=== PATIENT | female | born 1960 | race Caucasian/White ===

== ENCOUNTER 2019-07-03 14:00 | Inpatient (IN) | payer MEDICARE, BC ==
[~2019-07-03] VITALS: Ht 160 cm; Wt 74.3 kg
[2019-07-03 12:39] LABS: BASOPHILS % (AUTO) 0.2 % (0-1); EOSINOPHILS # (AUTO) 0.1 X10'3 (0-0.9); EOSINOPHILS % (AUTO) 1.2 % (0-6); LYMPHOCYTES # (AUTO) 2.9 X10'3 (1.1-4.8); LYMPHOCYTES % (AUTO) 44.4 % (21-51); MEAN CORPUSCULAR HGB CONC 33.6 g/dL (33.0-36.5); MONOCYTES # (AUTO) 0.5 X10'3 (0-0.9); MONOCYTES % (AUTO) 7.1 % (2-12); NEUTROPHILS # (AUTO) 3.1 X10'3 (1.8-7.7); NEUTROPHILS % (AUTO) 47.1 % (42-75); PRE OP HEMATOCRIT 39.1 % (35.0-45.0); PRE OP HEMOGLOBIN 13.2 g/dL (12.0-16.0); PRE OP PLATELET COUNT 252 X10'3 (140-440); RED BLOOD COUNT 4.25 X10'6 (4.20-5.60); RED CELL DISTRIBUTION WIDTH 12.8 % (11.5-14.5)
[2019-07-03 12:58] LABS: ALBUMIN 3.8 G/DL (3.4-5.0); ALBUMIN/GLOBULIN RATIO 1.2 (1.1-1.5); ALKALINE PHOSPHATASE 108 IU/L (46-116); BLOOD UREA NITROGEN 12 MG/DL (7-18); BUN/CREATININE RATIO 15.8 (6.6-38.0); CALCIUM 9.3 MG/DL (8.5-10.1); CHLORIDE 106 MMOL/L (99-107); CREATININE 0.76 MG/DL (0.40-0.90); PRE OP ALT 18 U/L (30-65); PRE OP ANION GAP 6 (8-16); PRE OP AST 20 U/L (10-37); PRE OP BILIRUB, TOTAL 0.2 MG/DL (0.0-1.0); PRE OP GLUCOSE 87 MG/DL (70-104); PRE OP POTASSIUM 4.1 MMOL/L (3.4-5.1); PRE OP SODIUM 141 MMOL/L (135-145); TOTAL CARBON DIOXIDE 28.9 MMOL/L (24-32); eGFR 78 ML/MIN
[~2019-07-03 14:00] MED LIST: AMIT10TA6 PO; CALC-1051 PO; ESOM40CA PO; FLUO20CA39 PO; MULT-933 PO; OXYC-658 PO; TIZA4CAP6 PO
[2019-07-11] VITALS (18 sets, daily range): BP systolic 83–142; BP diastolic 44–91
[2019-07-11] MEDS ORDERED: ringers solution, lacted 1,000 ML IV SCH ×2 (05:00→13:26)
[2019-07-11] MEDS ORDERED: famotidine 20mg tablet PO ONE (05:30)
[2019-07-11] MEDS ORDERED: vancomycin inj 1,500 MG in normal saline 300ml IV soln IV ONE (05:30)
[2019-07-11] MEDS ORDERED: tranexamic acid inj. 1,000 MG in normal saline 100 ML IV ONE (05:30)
[2019-07-11] MEDS ORDERED: ceFAZolin 1GM/D5W- ADD-VANTAGE 50 ML IV ONE (05:30)
[2019-07-11] MEDS ORDERED: ketorolac trometh. 30mg/ml inj. ONE (11:16)
[2019-07-11] MEDS ORDERED: ROPIVAcaine 0.5% (5mg/ml) 30ml vial ONE ×2 (11:17→12:45)
[2019-07-11] MEDS ORDERED: diphenhydrAMINE 50 mg/ml inj IV ONE (11:20)
--- NOTE | 2019-07-11 11:21 | NUR ---
PT CO ITCHING AFTER 30 MIN OF IV VANCO STARTED. NO REDDNESS, BENADRYL ORDERED. VANCO SLOWED.
[2019-07-11] MEDS ORDERED: tranexamic acid inj. 700 MG in normal saline 100ml IV soln 100 ML IV ONE ×3 (12:15→19:05)
[2019-07-11] MEDS ORDERED: dexamethasone sod phosphate 10mg/ml inj ONE (12:16)
[2019-07-11] MEDS ORDERED: sevoflurane 250ml liquid IH ONE (12:16)
[2019-07-11] MEDS ORDERED: morphine 10mg/ml inj. ONE (12:41)
[2019-07-11] MEDS ORDERED: ePHEDrine 50MG/ML INJ. ONE ×2 (12:45→13:24)
[2019-07-11] MEDS ORDERED: LIDOcaine 2% (20mg/ml) 5ml vial ONE (12:45)
[2019-07-11] MEDS ORDERED: propofol inj 20 ML IV ONE (12:45)
[2019-07-11] MEDS ORDERED: ondansetron/PF 4mg/2ml inj ONE (13:13)
[2019-07-11] MEDS ORDERED: enalaprilat dihydrate 2.5mg/2ml vial IV PRN (13:30)
[2019-07-11] MEDS ORDERED: HYDROmorphone inj. 0.5 MG/0.5 ML DISP.SYRIN IV PRN ×3 (13:30→15:00)
[2019-07-11] MEDS ORDERED: hydrALAZINE 20mg/ml inj. IV PRN (13:30)
[2019-07-11] MEDS ORDERED: ondansetron/PF 4mg/2ml inj IV PRN ×2 (13:30→15:00)
[2019-07-11] MEDS ORDERED: ROPIVAcaine 0.2% (10 MG/5 ML) BOLUS INJECTION INTERSCALE PRN ×2 (13:30→15:55)
[2019-07-11] MEDS ORDERED: morphine 4 MG/ML inj SYRINge IV PRN ×2 (13:30)
[2019-07-11] MEDS ORDERED: HYDROmorphone 1 mg/ml syringe IV PRN (15:00)
[2019-07-11] MEDS ORDERED: magnesium hydroxide 30ml (MOM) UD suspension PO PRN (15:00)
[2019-07-11] MEDS ORDERED: acetaminophen 325mg tablet PO PRN (15:00)
[2019-07-11] MEDS ORDERED: diphenhydrAMINE 25mg capsule PO PRN ×2 (15:00)
[2019-07-11] MEDS ORDERED: oxyCODONE IR 5mg (immed. release) tablet PO PRN (15:00)
[2019-07-11] MEDS ORDERED: bisacodyl 10mg suppository rectal RC PRN (15:00)
--- NOTE | 2019-07-11 15:03 | NUR ---
Received from OR via BED, accompanied by Anesthesiologist DR BROWER and report given by Anesthesiologist. PT DROWSY, DENIES PAIN, RIGHT SHOULDER W/DRSG, SHOULDER WRAP, ICE PACK, SLING, CDI. Addendum: 07/11/19 at 1602 by Wendy Bhatti RN Amended: Links added.
--- NOTE | 2019-07-11 15:35 | NUR ---
report from Wendy in Recovery
[2019-07-11] MEDS ORDERED: ROPIVAcaine 0.2%/PF PUMP/bolus 550 ML INTERSCALE SCH (15:51)
--- NOTE | 2019-07-11 16:23 | NUR ---
Report called to receiving nurse. Transferred via BED, GLASSES AND NERVE STIMULATOR ONLY Belongings SENT W/PT TO ROOM 4011B, PTS HAS PTS OTHER BELONGINGS, RECEIVING RN AT BEDSIDE TO RECEIVE PT, BLL, CALL LIGHT GIVEN, SIDE RAILS UP X 2. Special Issues communicated to receiving nurse. YES. Addendum: 07/11/19 at 1645 by Wendy Bhatti RN Amended: Links added.
--- NOTE | 2019-07-11 16:30 | NUR ---
patient came to floor into 4011B
[2019-07-11] MEDS: ceFAZolin 1GM/D5W- ADD-VANTAGE 50 ML IV SCH (17:03)
[2019-07-11] MEDS: oxyCODONE IR 5mg (immed. release) tablet PO PRN (17:04)
--- NOTE | 2019-07-11 17:32 | NUR ---
Patients bilateral calfs and feet are numb the patient describes them as being asleep, recovery nurse is aware of patients concern and is reaching out to the surgeon of patients concern, will continue to monitor
[2019-07-11] MEDS ORDERED: tranexamic acid inj. 740 MG in normal saline 100ml IV soln 100 ML IV ONE (18:00)
--- NOTE | 2019-07-11 18:15 | NUR ---
Received patient report from KEELY Ibanez. Assumed patient care.
--- NOTE | 2019-07-11 18:21 | NUR ---
Problems reprioritized. Patient report given, questions answered & plan of care reviewed with Valeria RIGGS.
--- NOTE | 2019-07-11 19:08 | NUR ---
Called OR charge to see if they had given Dr. Leal message earlier that Wendy Tao had relayed about pts legs being numb and needing muscle relaxer being increased. She said it had not. Legs at this time per not nurse are numb below knees posteriorly down to heels and feet but she is able to move and dorsi and plantar flex bilateral.
[2019-07-11] MEDS ORDERED: vancomycin/NS 1 GM ADD-VANTAGE 250 ML IV SCH (20:00)
[2019-07-11] MEDS: potassium cl 20mEq in 1/2 NS 1,000 ML IV SCH ×2 (20:18→22:58)
[2019-07-11] MEDS: acetaminophen 325mg tablet PO SCH (20:18)
[2019-07-11] MEDS: tizanidine 4mg tablet PO SCH (20:19)
[2019-07-11] MEDS: calcium carbonate/vitamin D3 tablet PO SCH (20:19)
[2019-07-11] MEDS ORDERED: tizanidine 4mg tablet PO SCH (21:00)
[2019-07-11] MEDS ORDERED: sennosides 8.6mg tablet PO SCH (21:00)
[2019-07-11] MEDS ORDERED: FLUoxetine 20mg capsule PO SCH (21:00)
[2019-07-11] MEDS ORDERED: pantoprazole 40mg Tablet.DR PO SCH (21:00)
[2019-07-11] MEDS ORDERED: amitriptyline 10mg tablet PO SCH (21:15)
[2019-07-12] MEDS: ceFAZolin 1GM/D5W- ADD-VANTAGE 50 ML IV SCH (00:03)
--- NOTE | 2019-07-12 00:22 | NUR ---
Patient requested her primary IV fluids be turned down to 20ml/hr. She also stated she does not want the scheduled 0200 dose of Tylenol.
[2019-07-12] MEDS: oxyCODONE IR 5mg (immed. release) tablet PO PRN ×2 (01:34→08:16)
[2019-07-12 02:00] VITALS: BP 107/63
[2019-07-12] MEDS: acetaminophen 325mg tablet PO SCH ×2 (02:00→08:15)
[2019-07-12 06:00] VITALS: BP 121/68
[2019-07-12 06:04] LABS: BASOPHILS % (AUTO) 0.1 % (0-1); EOSINOPHILS % (AUTO) 0 % (0-6); HEMATOCRIT 33.7 % (35.0-45.0); HEMOGLOBIN 11.5 g/dl (12.0-16.0); LYMPHOCYTES # (AUTO) 1.2 X10'3 (1.1-4.8); LYMPHOCYTES % (AUTO) 9.4 % (21-51); MEAN CORPUSCULAR HEMOGLOBIN 31.1 PG (27.0-31.0); MEAN CORPUSCULAR HGB CONC 34.1 g/dL (33.0-36.5); MEAN CORPUSCULAR VOLUME 91.2 FL (78-98); MEAN PLATELET VOLUME 9.1 FL (7.4-10.4); MONOCYTES # (AUTO) 0.8 X10'3 (0-0.9); MONOCYTES % (AUTO) 6.3 % (2-12); NEUTROPHILS # (AUTO) 11.1 X10'3 (1.8-7.7); NEUTROPHILS % (AUTO) 84.2 % (42-75); PLATELET COUNT 218 X10'3 (140-440); RED BLOOD COUNT 3.69 X10'6 (4.20-5.60); RED CELL DISTRIBUTION WIDTH 12.9 % (11.5-14.5); WHITE BLOOD COUNT 13.1 X10'3 (4.5-11.0)
[2019-07-12 06:07] LABS: ANION GAP 9 (8-16); CHLORIDE 108 MMOL/L (99-107); POTASSIUM 4.2 MMOL/L (3.5-5.1); SODIUM 142 MMOL/L (135-145); TOTAL CARBON DIOXIDE 24.6 MMOL/L (24-32)
--- NOTE | 2019-07-12 06:08 | NUR ---
Patient report given, questions answered and plan of care reviewed with KEELY Bustamante
--- NOTE | 2019-07-12 06:20 | NUR ---
Patient in room ORTHO 4011. I have received report from Valeria and had the opportunity to ask questions and assume patient care.
[2019-07-12] MEDS: potassium cl 20mEq in 1/2 NS 1,000 ML IV SCH (06:58)
[2019-07-12] MEDS ORDERED: multivitamins, therapeutics tablet PO SCH (08:00)
[2019-07-12] MEDS: calcium carbonate/vitamin D3 tablet PO SCH (08:00)
[2019-07-12] MEDS: tizanidine 4mg tablet PO SCH (08:15)
[2019-07-12] MEDS ORDERED: aspirin 325mg tablet PO SCH (08:30)
[2019-07-12] MEDS ORDERED: ASPI-1 PO (09:37)
[2019-07-12] MEDS ORDERED: WALKERFR (09:37)
[2019-07-12 10:00] VITALS: BP 91/47
--- NOTE | 2019-07-12 11:55 | NUR ---
Reviewed discharge instructions with pt. Pt verbalized understanding. All of pt's belongings were returned to pt. Pt was wheeled downstairs to be driven home by her family.
== END 2019-07-12 11:55 | disposition home or self-care (01) | DRG 483 ==
LOC: EDSTATUS 07-11 07:30 → PAS IN 07-11 09:39 → EDSTATUS 07-11 16:15 → ORTHO 4S 07-11 16:20
PROVIDERS: ADMIT Orthopaedic Surgery; ATTEND Orthopaedic Surgery
PROC: 3E0T3BZ Introduction of Anesthetic Agent into Peripheral Nerves and Plexi, Percutaneous Approach (ICD-10-PCS; 2019-07-11)
PROC: 0RRJ0JZ Replacement of Right Shoulder Joint with Synthetic Substitute, Open Approach (ICD-10-PCS; principal; 2019-07-11 12:04)
DX: M19.111 Post-traumatic osteoarthritis, right shoulder (principal); D62 Acute posthemorrhagic anemia; M75.21 Bicipital tendinitis, right shoulder; M25.511 Pain in right shoulder; G43.909 Migraine, unspecified, not intractable, without status migrainosus; M54.32 Sciatica, left side; M62.838 Other muscle spasm; G89.29 Other chronic pain; F32.9 Major depressive disorder, single episode, unspecified; K21.9 Gastro-esophageal reflux disease without esophagitis; M54.2 Cervicalgia; Z88.8 Allergy status to other drugs, medicaments and biological substances; Z72.89 Other problems related to lifestyle
CPT/HCPCS: 36415; 80051; 80053; 82948; 85025; 87081; 93005; A4565; A4618; A7000; C1713; C1776; G0378; J0690; J1100; J1170; J1200; J1885; J2001; J2270; J2405; J2704; J2795; J3370; J3480; J7120

== ENCOUNTER 2021-03-31 15:07 | Day surgery (SDC) | payer BC, MEDICARE ==
[2021-03-24 14:34] LABS: BASOPHILS % (AUTO) 0.4 % (0-1); EOSINOPHILS % (AUTO) 0.7 % (0-6); LYMPHOCYTES # (AUTO) 2.3 X10'3 (1.1-4.8); LYMPHOCYTES % (AUTO) 33.3 % (21-51); MEAN CORPUSCULAR HEMOGLOBIN 30.5 PG (27.0-31.0); MEAN CORPUSCULAR HGB CONC 33.5 g/dL (33.0-36.5); MEAN PLATELET VOLUME 9.2 FL (7.4-10.4); MONOCYTES # (AUTO) 0.5 X10'3 (0-0.9); NEUTROPHILS # (AUTO) 4.1 X10'3 (1.8-7.7); NEUTROPHILS % (AUTO) 58.6 % (42-75); PRE OP HEMATOCRIT 39.9 % (35.0-45.0); PRE OP HEMOGLOBIN 13.4 g/dL (12.0-16.0); PRE OP PLATELET COUNT 262 X10'3 (140-440); RED BLOOD COUNT 4.39 X10'6 (4.20-5.60); RED CELL DISTRIBUTION WIDTH 12.7 % (11.5-14.5)
[2021-03-24 14:46] LABS: PRE OP PROTIME 10.6 SECONDS (9.0-12.0)
[2021-03-24 14:49] LABS: ALBUMIN 3.9 G/DL (3.4-5.0); ALBUMIN/GLOBULIN RATIO 1.3 (1.1-1.5); ALKALINE PHOSPHATASE 126 IU/L (46-116); BLOOD UREA NITROGEN 12 MG/DL (7-18); BUN/CREATININE RATIO 16.2 (6.6-38.0); CALCIUM 8.9 MG/DL (8.5-10.1); CHLORIDE 107 MMOL/L (99-107); CREATININE 0.74 MG/DL (0.40-0.90); PRE OP ALT 17 U/L (30-65); PRE OP ANION GAP 11 (8-16); PRE OP AST 15 U/L (10-37); PRE OP BILIRUB, TOTAL 0.3 MG/DL (0.0-1.0); PRE OP GLUCOSE 94 MG/DL (70-104); PRE OP POTASSIUM 4.2 MMOL/L (3.4-5.1); PRE OP SODIUM 144 MMOL/L (135-145); TOTAL CARBON DIOXIDE 26.2 MMOL/L (24-32); TOTAL PROTEIN 6.9 G/DL (6.4-8.2); eGFR 81 ML/MIN
[~2021-03-31] VITALS: Ht 160 cm; Wt 64.9 kg
[2021-03-31] VITALS (14 sets, daily range): BP systolic 115–144; BP diastolic 56–90
--- NOTE | 2021-03-31 14:57 | NUR ---
Received from OR via BED, accompanied by Anesthesiologist DR WYNN and report given by Anesthesiologist. PT DROWSY, DENIES PAIN. RIGHT SHOULDER W/SHOULDER WRAP, ROSSI, ICE PACK, SLING CDI. Addendum: 03/31/21 at 1515 by Wendy Bhatti RN Amended: Links added.
[~2021-03-31 15:07] MED LIST changes: +0.9 % SODIUM CHLORIDE 10 ML VIAL ONE; -CALC-1051 PO; +CETI10CA PO; +HYDROmorphone 1 mg/ml syringe IV PRN; +HYDROmorphone inj. 0.5 MG/0.5 ML DISP.SYRIN IV PRN; +HYDROmorphone/PF 0.2 MG/ML SYRINGE IV PRN; +LIDOcaine 1%/PF 5ML 10 MG/ML VIAL ONE; +LIDOcaine 2% (20mg/ml) 5ml vial ONE; +MIDAZolam 1 MG/ML 5ML VIAL ONE; -OXYC-658 PO; +ROPIVAcaine 0.2% (10 MG/5 ML) BOLUS INJECTION INTERSCALE PRN; +ROPIVAcaine 0.2%/PF PUMP/bolus 545 ML INTERSCALE SCH; +ROPIVAcaine 0.5% (5mg/ml) 30ml vial ONE; +VANCOMYCIN INJ 1000 MG in NORMAL SALINE 250ml IV.SOLN IV ONE; +acetaminophen 1,000mg/100ml IV 100 ML IV PRN; +acetaminophen 325mg tablet PO PRN; +bisacodyl 10mg suppository rectal RC PRN; +cefazolin/dext.iso 2gm/100ml IV ONE; +dexamethasone sod phosphate 4mg/ml inj. ONE; +diphenhydrAMINE 25mg capsule PO ONE; +diphenhydrAMINE 25mg capsule PO PRN; +diphenhydrAMINE 50 mg/ml inj ONE; +ePHEDrine 50MG/ML INJ. ONE; +famotidine 20mg tablet PO ONE; +glycopyrrolate 0.2mg/ml inj ONE; +hydrALAZINE 20mg/ml inj. IV PRN; +ketorolac trometh. 30mg/ml inj. ONE; +labetalol 20mg/4ml (5mg/ml) syringe IV PRN; +magnesium hydroxide 30ml (MOM) UD suspension PO PRN; +morphine 10mg/ml inj. ONE; +morphine 2 MG/ML inj. syringe IV PRN; +morphine 4 MG/ML inj SYRINge IV PRN; +neostigmine methylsulfate 1 MG/ML 10ml vial ONE; +ondansetron/PF 4mg/2ml inj IV ONE; +ondansetron/PF 4mg/2ml inj IV PRN; +ondansetron/PF 4mg/2ml inj ONE; +oxyCODONE IR 5mg (immed. release) tablet PO PRN; +potassium cl 20mEq in 1/2 NS 1,000 ML IV SCH; +proCHLORperazine 10 MG/2 ml inj IV PRN; +propofol inj 20 ML IV ONE; +ringers solution, lacted 1,000 ML IV SCH; +rocuronium 10mg/ml inj IV ONE; +scopolamine 1mg/72 hr patch TD ONE; +sevoflurane 250ml liquid IH ONE; +tranexamic acid 650mg tablet PO ONE
[2021-03-31] MEDS ORDERED: meperidine/PF 25mg/ml syringe IV ONE (15:20)
[2021-03-31] MEDS ORDERED: meperidine/PF 25mg/ml syringe ONE (15:22)
[2021-03-31] MEDS ORDERED: ceFAZolin/D5W- 1GM premix 50 ML IV SCH (16:00)
--- NOTE | 2021-03-31 16:07 | NUR ---
PT APPARENTLY HAD SIATICA PROBLEMS W/HER LAST SURGERY, CHECKED BILAT LE'S FOR STRENGHT AND SENSATION, PT W/EQUAL STRENGTH, DENIES ANY PAIN OR WEAKNESS. Report called to receiving nurse. Transferred via BED W/2 LARGE BAGS OF Belongings. BLL, CALL LIGHT GIVEN, SIDE RAILS UP X 2, RECEIVING RN AT BEDSIDE TO RECEIVE PT. Special Issues communicated to receiving nurse. YES. Addendum: 03/31/21 at 1627 by Wendy Bhatti RN Amended: Links added.
--- NOTE | 2021-03-31 16:15 | NUR ---
RECEIVED REPORT FROM KEELY PRATER IN RECOVERY. PT ARRIVED AT 1615 AND IN ROOM 8182A
--- NOTE | 2021-03-31 18:04 | NUR ---
D/C'D IV, CANNULA INTACT, NO COMPLICATIONS
--- NOTE | 2021-03-31 18:35 | NUR ---
Problems reprioritized. Patient report given, questions answered & plan of care reviewed with KEELY GARCÍA.
--- NOTE | 2021-03-31 18:38 | NUR ---
ambulate to private car. Son taking patient home
[2021-03-31] MEDS ORDERED: vancomycin/NS 1 GM ADD-VANTAGE 250 ML IV SCH (20:00)
[2021-03-31] MEDS ORDERED: acetaminophen 325mg tablet PO SCH (20:00)
[2021-03-31] MEDS ORDERED: amitriptyline 10mg tablet PO SCH (21:00)
[2021-03-31] MEDS ORDERED: tizanidine 4mg tablet PO SCH (21:00)
[2021-03-31] MEDS ORDERED: sennosides 8.6mg tablet PO SCH (21:00)
[2021-03-31] MEDS ORDERED: FLUoxetine 20mg capsule PO SCH (21:00)
[2021-04-01] MEDS ORDERED: pantoprazole 40mg Tablet.DR PO SCH (07:30)
[2021-04-01] MEDS ORDERED: multivitamins, therapeutics tablet PO SCH (08:00)
[2021-04-01] MEDS ORDERED: loratadine 10mg tablet PO SCH (08:00)
[2021-04-01] MEDS ORDERED: aspirin 325mg tablet PO SCH (08:30)
[2021-04-01] MEDS ORDERED: celeCOXIB 100mg capsule PO SCH (20:00)
[2021-04-02] MEDS ORDERED: acetaminophen 325mg tablet PO PRN (15:05)
== END 2021-03-31 18:40 | disposition home or self-care (01) ==
LOC: OR 15:07 → EDSTATUS 15:30 → ORTHO 4S 16:15 → PAS IN 16:15 → OR 18:40 → UNDODISIN 18:40
PROVIDERS: ATTEND Orthopaedic Surgery
DX: T84.84XA Pain due to internal orthopedic prosthetic devices, implants and grafts, initial encounter (principal); M75.121 Complete rotator cuff tear or rupture of right shoulder, not specified as traumatic; G89.4 Chronic pain syndrome; G43.909 Migraine, unspecified, not intractable, without status migrainosus; M19.111 Post-traumatic osteoarthritis, right shoulder; K21.9 Gastro-esophageal reflux disease without esophagitis; F32.9 Major depressive disorder, single episode, unspecified; G89.18 Other acute postprocedural pain; Z88.8 Allergy status to other drugs, medicaments and biological substances; Z79.899 Other long term (current) drug therapy; Z98.890 Other specified postprocedural states; Z90.49 Acquired absence of other specified parts of digestive tract; Z90.710 Acquired absence of both cervix and uterus; Z72.89 Other problems related to lifestyle; Z79.01 Long term (current) use of anticoagulants; Z79.2 Long term (current) use of antibiotics; Z79.82 Long term (current) use of aspirin; Y83.8 Other surgical procedures as the cause of abnormal reaction of the patient, or of later complication, without mention of misadventure at the time of the procedure; Y92.89 Other specified places as the place of occurrence of the external cause
CPT/HCPCS: 23474; 36415; 64416; 76937; 80053; 82948; 85025; 85610; 85730; 87070; 87075; 87081; C1776; J1100; J1200; J1885; J2001; J2175; J2250; J2270; J2405; J2704; J2710; J2795; J3370; J7120; Q0163; U0003; U0005; Z7506; Z7508; Z7512; A4565; A4618; A7000; G0378; J0690; J3480; J3490

== ENCOUNTER 2022-01-13 15:36 | Emergency (ER) | payer BC ==
[~2022-01-13] VITALS: Ht 160 cm; Wt 70.0 kg
[~2022-01-13 15:36] MED LIST changes: -0.9 % SODIUM CHLORIDE 10 ML VIAL ONE; -HYDROmorphone 1 mg/ml syringe IV PRN; -HYDROmorphone inj. 0.5 MG/0.5 ML DISP.SYRIN IV PRN; -HYDROmorphone/PF 0.2 MG/ML SYRINGE IV PRN; -LIDOcaine 1%/PF 5ML 10 MG/ML VIAL ONE; -LIDOcaine 2% (20mg/ml) 5ml vial ONE; -MIDAZolam 1 MG/ML 5ML VIAL ONE; -ROPIVAcaine 0.2% (10 MG/5 ML) BOLUS INJECTION INTERSCALE PRN; -ROPIVAcaine 0.2%/PF PUMP/bolus 545 ML INTERSCALE SCH; -ROPIVAcaine 0.5% (5mg/ml) 30ml vial ONE; -VANCOMYCIN INJ 1000 MG in NORMAL SALINE 250ml IV.SOLN IV ONE; -acetaminophen 1,000mg/100ml IV 100 ML IV PRN; -acetaminophen 325mg tablet PO PRN; -bisacodyl 10mg suppository rectal RC PRN; -cefazolin/dext.iso 2gm/100ml IV ONE; -dexamethasone sod phosphate 4mg/ml inj. ONE; -diphenhydrAMINE 25mg capsule PO ONE; -diphenhydrAMINE 25mg capsule PO PRN; -diphenhydrAMINE 50 mg/ml inj ONE; -ePHEDrine 50MG/ML INJ. ONE; -famotidine 20mg tablet PO ONE; -glycopyrrolate 0.2mg/ml inj ONE; -hydrALAZINE 20mg/ml inj. IV PRN; -ketorolac trometh. 30mg/ml inj. ONE; -labetalol 20mg/4ml (5mg/ml) syringe IV PRN; -magnesium hydroxide 30ml (MOM) UD suspension PO PRN; -morphine 10mg/ml inj. ONE; -morphine 2 MG/ML inj. syringe IV PRN; -morphine 4 MG/ML inj SYRINge IV PRN; -neostigmine methylsulfate 1 MG/ML 10ml vial ONE; -ondansetron/PF 4mg/2ml inj IV ONE; -ondansetron/PF 4mg/2ml inj IV PRN; -ondansetron/PF 4mg/2ml inj ONE; -oxyCODONE IR 5mg (immed. release) tablet PO PRN; -potassium cl 20mEq in 1/2 NS 1,000 ML IV SCH; -proCHLORperazine 10 MG/2 ml inj IV PRN; -propofol inj 20 ML IV ONE; -ringers solution, lacted 1,000 ML IV SCH; -rocuronium 10mg/ml inj IV ONE; -scopolamine 1mg/72 hr patch TD ONE; -sevoflurane 250ml liquid IH ONE; -tranexamic acid 650mg tablet PO ONE
[2022-01-13 15:38] VITALS: BP 176/100
== END 2022-01-13 17:13 | disposition home or self-care (01) ==
LOC: ER 15:36
DX: S92.352A Displaced fracture of fifth metatarsal bone, left foot, initial encounter for closed fracture (principal); S90.111A Contusion of right great toe without damage to nail, initial encounter; Z72.89 Other problems related to lifestyle; Z98.890 Other specified postprocedural states; Z88.8 Allergy status to other drugs, medicaments and biological substances; Z79.899 Other long term (current) drug therapy; W01.0XXA Fall on same level from slipping, tripping and stumbling without subsequent striking against object, initial encounter; Y93.89 Activity, other specified; Y92.89 Other specified places as the place of occurrence of the external cause; Y99.8 Other external cause status
CPT/HCPCS: 73610; 73630; 73660; 99284